=== PATIENT | male | born 1970 | race Caucasian/White ===

== ENCOUNTER → 2023-10-18 14:15 | Outpatient (REF) | payer OTHER, SELFPAY | LOC: HWRAD 14:15 | PROVIDERS: ATTENDING PHYSICIAN Otolaryngology; FAMILY PHYSICIAN Internal Medicine | DX: J33.0 Polyp of nasal cavity (principal); J32.0 Chronic maxillary sinusitis | CPT/HCPCS: 70486 ==

== ENCOUNTER 2024-05-09 12:50 | Emergency (ER) | payer OTHER, SELFPAY ==
[2024-05-09 12:53] VITALS: BP 159/89
--- NOTE | 2024-05-09 13:00 | ED.GENMED ---
ED Provider Triage
<Carolina Andrea PA-C - Last Filed: 05/09/24 13:06>
-
Patient seen by provider in Triage?: Seen in Triage
53 y/o M with h/o htn
high fever x 104.5 6 days ago, congestion
covid and flu neg at 5 days ago
started augmentin after seeing PCP 4 days ago
felt some chest tightness and was coughing so called pcp 3 days ago nd started steroid taper
having a lot of L rib pin with breathing and cough
denies h/o PE
History of Present Illness
<Carolina Andrea PA-C - Last Filed: 05/09/24 13:06>
General
Chief Complaint: Fever
Time Seen by Provider: 05/09/24 13:56
<Joon Adrian PA-C - Last Filed: 05/09/24 19:52>
History of Present Illness
History of Present Illness:
53-year-old male with history of hypertension presents to the emergency department for evaluation of persistent cough and blood-tinged sputum over the past week. He has been on Augmentin for the past 5 days and steroids for the past 4 days. Feels
though he is not improving and has had progressively worsening shortness of breath during this time as well. Fevers seem to have resolved in the past 24 hours. No leg swelling, no recent prolonged immobilization
Past History
<Carolina Andrea PA-C - Last Filed: 05/09/24 13:06>
Past History
ED Past Medical History: None
Social History
Tobacco: Non-smoker
Personal:
Review of Systems
<Joon Adrian PA-C - Last Filed: 05/09/24 19:52>
Review of Systems
Allergies reviewed?: Yes
All Other Systems: ROS reviewed and negative except as documented in HPI and ROS
Phy Exam
<Joon Adrian PA-C - Last Filed: 05/09/24 19:52>
Physical Exam
Physical Exam:
GEN: Well appearing, NAD, WDWN
Eyes: PERRLA, EOMs intact, no scleral icterus
HENT: NCAT, oral mucosa moist
Lungs: CTAB, no wheezes, rales, rhonchi, normal chest wall excursion
Cardiac: RRR, no M/R/G, no peripheral edema. Radial pulses 2+ bilat
Abdomen: S, NT, ND, NABS, no masses or hepatosplenomegaly
Neuro: AO x 3
MSK: No gross deformity or ecchymosis. No edema. No digital clubbing
Skin: No rashes, petechiae. Normal color, no pallor or jaundice.
Psych: Calm, cooperative, proper hygiene
Course
<Carolina Andrea PA-C - Last Filed: 05/09/24 13:06>
Orders/Labs/Results
Orders:
Orders
05/09/24 13:04
Electrocardiogram (*1) Urgent
Reason for Study: Chest Pain
EKG- Treatment ONCE
05/09/24 13:20
Complete Blood Count/With Diff Urgent
Comprehensive Metabolic Panel Urgent
Lactic Acid Q4H
Comment: CANCEL 2nd LACTIC ACID IF 1st LACTIC ACID IS LESS THAN 2
Blood Culture Urgent
BORA Source: Blood/Venous
Specimen Description:
05/09/24 14:12
CR Chest - 2 Views Urgent
Comment:
Reason For Exam: cough/SOB
05/09/24 15:13
CT Chest Pe Study Urgent
Comment:
Reason For Exam: hemoptysis
05/09/24 17:31
CefTRIAXone [Rocephin] 1,000 mg IV NOW STA
Doxycycline [Vibramycin] 100 mg PO NOW STA
Abnormal Lab Results
05/09/24
13:20
MCV 95.9 H fL
(80.0-94.0)
MCH 33.0 H pg
(27.0-31.0)
MPV 10.5 H fL
(7.4-10.4)
Abs Immat Gran (auto) 0.4 H 10^3/uL
(0-0.05)
Absolute Neuts (auto) 6.6 H 10^3/uL
(1.4-6.5)
Absolute Lymphs (auto) 0.9 L 10^3/uL
(1.2-3.4)
Immature Gran % 4.1 H %
(0-0.5)
Neutrophils % 76.2 H %
(42.2-75.2)
Lymphocytes % 10.9 L %
(20.5-51.1)
Glucose 133 H mg/dl
(70-99)
AST 88 H U/L
(17-59)
ALT 171 H U/L
(0-50)
05/09/24 13:20
05/09/24 13:20
Vital Signs
Initial and Last Documented VS:
Initial Vital Signs
Pulse Resp BP Pulse Ox
62 18 159/89 97
05/09/24 12:53 05/09/24 12:53 05/09/24 12:53 05/09/24 12:53
Last Documented Vital Signs
Temp Pulse Resp BP Pulse Ox
97.7 F 56 16 134/74 95
05/09/24 14:05 05/09/24 17:41 05/09/24 17:41 05/09/24 17:40 05/09/24 17:40
<Joon Adrian PA-C - Last Filed: 05/09/24 19:52>
Orders/Labs/Results
Orders:
Orders
05/09/24 13:04
Electrocardiogram (*1) Urgent
Reason for Study: Chest Pain
EKG- Treatment ONCE
05/09/24 13:20
Complete Blood Count/With Diff Urgent
Comprehensive Metabolic Panel Urgent
Lactic Acid Q4H
Comment: CANCEL 2nd LACTIC ACID IF 1st LACTIC ACID IS LESS THAN 2
Blood Culture Urgent
BORA Source: Blood/Venous
Specimen Description:
05/09/24 14:12
CR Chest - 2 Views Urgent
Comment:
Reason For Exam: cough/SOB
05/09/24 15:13
CT Chest Pe Study Urgent
Comment:
Reason For Exam: hemoptysis
05/09/24 17:31
CefTRIAXone [Rocephin] 1,000 mg IV NOW STA
Doxycycline [Vibramycin] 100 mg PO NOW STA
Abnormal Lab Results
05/09/24
13:20
MCV 95.9 H fL
(80.0-94.0)
MCH 33.0 H pg
(27.0-31.0)
MPV 10.5 H fL
(7.4-10.4)
Abs Immat Gran (auto) 0.4 H 10^3/uL
(0-0.05)
Absolute Neuts (auto) 6.6 H 10^3/uL
(1.4-6.5)
Absolute Lymphs (auto) 0.9 L 10^3/uL
(1.2-3.4)
Immature Gran % 4.1 H %
(0-0.5)
Neutrophils % 76.2 H %
(42.2-75.2)
Lymphocytes % 10.9 L %
(20.5-51.1)
Glucose 133 H mg/dl
(70-99)
AST 88 H U/L
(17-59)
ALT 171 H U/L
(0-50)
05/09/24 13:20
05/09/24 13:20
Vital Signs
Initial and Last Documented VS:
Initial Vital Signs
Pulse Resp BP Pulse Ox
62 18 159/89 97
05/09/24 12:53 05/09/24 12:53 05/09/24 12:53 05/09/24 12:53
Last Documented Vital Signs
Temp Pulse Resp BP Pulse Ox
97.7 F 56 16 134/74 95
05/09/24 14:05 05/09/24 17:41 05/09/24 17:41 05/09/24 17:40 05/09/24 17:40
<Joon Adrian PA-C - Last Filed: 05/09/24 19:52>
MDM/Problems Addressed
MDM/Problems Addressed:
Given x-ray was unremarkable and the patient is has persistent symptoms coupled with blood-tinged sputum obtain follow-up CTA of the chest to rule out pulmonary embolism or mass lesion, this revealed a right lower lobe pneumonia. Will switch the
patient from Augmentin to cefpodoxime and doxycycline, feel he is suitable for discharge to home as he is not hypoxic, in no respiratory distress, and has normal labs
<Joon Adrian PA-C - Last Filed: 05/09/24 19:52>
*Critical Care Note
Total Time (30-74mins, 75-104mins- exclusive of procedures): Not Applicable
ED Attending Note
<Carolina Andrea PA-C - Last Filed: 05/09/24 13:06>
-
Portions of this chart may have been created with voice recognition software.� Occasional wrong word or��sound alike� substitutions may have occurred due to the inherent limitations of voice recognition software.
Discharge Plan
Departure
Patient Disposition: Home (Routine Discharge)
Date of Disposition: 05/09/24
Time of Disposition: 17:32
Patient with high blood pressure during this ER visit?: No
Discharge Problem:
Right lower lobe pneumonia
Instructions: Pneumonia, Adult (DC)
Prescriptions:
New
cefpodoxime 200 mg tablet
200 mg PO BID 4 Days Qty: 8 0RF
doxycycline hyclate 100 mg capsule
100 mg PO BID Qty: 9 0RF
No Action
lisinopril 5 MG tablet
5 mg PO DAILY
Referrals:
Mason Rajput DO [Family Provider] -
Interventions
Interventions:
*Risk Screen - Suicide Last Done: 05/09/24 14:08
*General Assessment Last Done: 05/09/24 14:08
*Neglect/Abuse Screening Last Done: 05/09/24 14:08
ED- Fall Risk Assessment Last Done: 05/09/24 17:41
*ED COVID-19 Vaccine History Last Done: 05/09/24 12:55
*Nursing Disposition Last Done: 05/09/24 17:44
ED- Neurological Assessment Last Done: 05/09/24 14:08
ED-Skin Assessment Last Done: 05/09/24 14:08
Discharge Date and Time
Discharge Date/Time: 05/09/24 17:44
Print Language: MAORI
[2024-05-09 13:29] LABS: % Basophils 0.7 % (0-2); % Eosinophils 0.8 % (0-6); % Immature Granulocytes 4.1 % (0-0.5); % Lymphocytes 10.9 % (20.5-51.1); % Monocytes 7.3 % (1.7-9.3); % Neutrophils 76.2 % (42.2-75.2); Absolute Basophils 0.1 10^3/uL (0-0.2); Absolute Eosinophils 0.1 10^3/uL (0-0.7); Absolute Immature Granulocytes 0.4 10^3/uL (0-0.05); Absolute Lymphocytes 0.9 10^3/uL (1.2-3.4); Absolute Monocytes 0.6 10^3/uL (0.1-0.6); Absolute Neutrophils 6.6 10^3/uL (1.4-6.5); Hematocrit 46.8 % (39.0-52.0); Hemoglobin 16.1 g/dL (13.0-18.0); Mean Corp Hgb Conc. 34.4 g/dL (33.0-37.0); Mean Corpuscular Volume 95.9 fL (80.0-94.0); Mean Platelet Volume 10.5 fL (7.4-10.4); Nucleated Red Blood Cells % 0 % (-); Platelet Count 199 10^3/uL (130-400); Red Blood Cell Count 4.88 10^6/uL (4.70-6.10); Red Cell Dist. Width 12.8 % (11.5-14.5); White Blood Cell Count 8.6 10^3/uL (4.8-10.8)
[2024-05-09 13:45] LABS: ALT (SGPT) 171 U/L (0-50); AST (SGOT) 88 U/L (17-59); Albumin 3.8 g/dl (3.5-5.0); Alkaline Phosphatase 110 U/L (38-126); Blood Urea Nitrogen 16 mg/dl (9-20); Calcium 9.8 mg/dl (8.4-10.2); Carbon Dioxide 29 mmol/L (22-30); Chloride 103 mmol/L (98-107); Glucose 133 mg/dl (70-99); Potassium 4.3 mmol/L (3.5-5.1); Sodium 141 mmol/L (135-145); Total Bilirubin 0.6 mg/dl (0.2-1.3); Total Protein 6.5 g/dl (6.3-8.2); eGFR > 60.00
[2024-05-09 13:46] LABS: Lactic Acid 0.9 mmol/L (0.7-2.0)
[2024-05-09 14:04] VITALS: BP 129/89
[2024-05-09 14:46] VITALS: BP 138/84
[2024-05-09 14:48] VITALS: BP 138/84
[2024-05-09 17:00] VITALS: BP 107/90
[2024-05-09] MEDS: ROCEPHIN 1000 MG IV (17:37)
[2024-05-09] MEDS: VIBRAMYCIN 100 MG PO (17:37)
[2024-05-09 17:40] VITALS: BP 134/74
== END 2024-05-09 17:44 | disposition home or self-care (01) ==
LOC: EMR 12:50
PROVIDERS: Physician Assistant; EMERGENCY PHYSICIAN Student in an Organized Health Care Education/Training Program; FAMILY PHYSICIAN Internal Medicine
DX: J18.9 Pneumonia, unspecified organism (principal); I10 Essential (primary) hypertension
CPT/HCPCS: 99284; 96374; 71046; 71275; 80053; 83605; 85025; 87040; 93005; Q9967

== ENCOUNTER 2024-06-12 06:15 | Day surgery (SDC) | payer OTHER, SELFPAY | END 2024-06-12 08:53 | disposition home or self-care (01) | LOC: GI 06:15 | PROVIDERS: ATTENDING PHYSICIAN Internal Medicine Gastroenterology | DX: Z12.11 Encounter for screening for malignant neoplasm of colon (principal); K64.8 Other hemorrhoids; K57.30 Diverticulosis of large intestine without perforation or abscess without bleeding; D12.0 Benign neoplasm of cecum; Z80.0 Family history of malignant neoplasm of digestive organs; Z86.0100 Personal history of colon polyps, unspecified | CPT/HCPCS: 45380; 88305 ==

== ENCOUNTER 2025-02-02 22:57 | Emergency (ER) | payer OTHER, SELFPAY ==
[2025-02-02 22:59] VITALS: BP 158/93
[2025-02-02 23:25] LABS: Hematocrit 45.7 % (39.0-52.0); Hemoglobin 15.8 g/dL (13.0-18.0); Mean Corp Hgb Conc. 34.6 g/dL (33.0-37.0); Mean Corpuscular Volume 95.4 fL (80.0-94.0); Nucleated Red Blood Cells % 0 % (-); Platelet Count 174 10^3/uL (130-400); Red Cell Dist. Width 12.6 % (11.5-14.5)
[2025-02-02 23:41] LABS: ALT (SGPT) 29 U/L (0-50); AST (SGOT) 24 U/L (17-59); Albumin 4.2 g/dl (3.5-5.0); Alkaline Phosphatase 100 U/L (38-126); Blood Urea Nitrogen 19 mg/dl (9-20); Calcium 10.2 mg/dl (8.4-10.2); Carbon Dioxide 27 mmol/L (22-30); Chloride 105 mmol/L (98-107); Glucose 104 mg/dl (70-99); Potassium 4.7 mmol/L (3.5-5.1); Sodium 136 mmol/L (135-145); Total Protein 6.9 g/dl (6.3-8.2); eGFR > 60.00
[2025-02-02 23:53] LABS: Troponin I < 0.012 ng/ml
[2025-02-03] VITALS (9 sets, daily range): BP systolic 108–136; BP diastolic 61–91
[2025-02-03] MEDS: CARDIZEM 20 MG IV (04:02)
[2025-02-03] MEDS: TYLENOL 650 MG PO (04:16)
[2025-02-03] MEDS: CARDIZEM 125 IV (05:05)
--- NOTE | 2025-02-03 06:52 | ED.GENMED ---
History of Present Illness
<Leon Diaz, DO - Last Filed: 02/04/25 05:11>
General
Chief Complaint: Heart Rate Problem
Source: patient
Time Seen by Provider: 02/03/25 02:18
Nursing documentation reviewed up to this point in time: agreed with
History of Present Illness
History of Present Illness:
Note:
CHIEF COMPLAINT(S)
Palpitations with confirmed atrial fibrillation.
HISTORY OF PRESENT ILLNESS
The patient is a 54-year-old male who presented after experiencing an elevated heart rate detected by his smartwatch around 10:00 PM, which indicated he was in atrial fibrillation. He denied previously experiencing atrial fibrillation patient states
that for the last few days he has been feeling weak and fatigued. He did note a sensation of tightness in his chest, although he explicitly stated it was not chest pain. This sensation began while he was at work. 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
insurance agency manager. The exact onset of the atrial fibrillation is uncertain, but the sensation intensified around 10:00 PM via his watch. He also reported occasionally waking up at 3:00 AM with a notably low heart rate, around 40 beats per minute,.
PAST MEDICAL AND SURGICAL HISTORY
The patient is currently taking lisinopril at a dose of 10 milligrams for blood pressure management.
MEDICATIONS
Lisinopril 10 mg.
FAMILY HISTORY
The patient reported that his mother has a history of cardiac issues, although specifics were not detailed.
PHYSICAL EXAM
General: Alert, no acute distress.
Skin: Warm, dry.
Head: Normocephalic, atraumatic.
Neck: Supple, trachea midline.
Eye Ears, nose, mouth, and throat: Oral mucosa moist.
Cardiovascular: rhythm consistent with atrial fibrillation without acute edema.
Respiratory: Respirations are non-labored.
Musculoskeletal: Normal range of motion, normal strength.
Neurological: Alert and oriented to person, place, time, and situation; no focal neurological deficit observed.
Psychiatric: Cooperative, appropriate mood and affect.
PLAN
Initiate treatment with medication to attempt conversion from atrial fibrillation to normal sinus rhythm. If unsuccessful, consult with cardiology for further management, including potential admission for more in-depth assessment and testing to rule
out thromboembolic risk and other complications associated with atrial fibrillation.
DIFFERENTIAL DIAGNOSIS
The Differential Diagnosis includes, in no particular order, and is not limited to: Atrial fibrillation, Atrial flutter, Supraventricular tachycardia, Premature atrial contractions, Anxiety/panic attack, Hyperthyroidism, Structural heart disease,
Dehydration/Electrolyte imbalance, Alcohol use, and Drug-induced arrhythmia.
Disposition:
SUMMARY OF ENCOUNTER
The patient, a 54-year-old male, presented to the emergency department with palpitations, which were detected by his smartwatch as atrial fibrillation. He reported experiencing sensations of chest tightness, weakness, and fatigue over the last few
days. Although he had an episode of low heart rate during sleep, no previous diagnosis of atrial fibrillation existed. Physical examination confirmed atrial fibrillation without acute distress. The management plan involved initiating medication for
rhythm conversion and consideration of admission for further assessment to address potential thromboembolic risks, depending on treatment success.
ASSESSMENT
The patient presents with new-onset atrial fibrillation, symptoms of weakness, fatigue, and sensation of chest tightness, likely secondary to atrial fibrillation.
PLAN
Initiate medication for rhythm conversion from atrial fibrillation to normal sinus rhythm. If the medical management proves inadequate to restore sinus rhythm, consult cardiology for further management, including potential admission for
comprehensive evaluation and management of thromboembolic risks and associated complications.
MEDICATION RECONCILIATION
Lisinopril 10 mg for blood pressure management.
MEDICAL DECISION MAKING
- Number and Complexity of Problems Addressed: Chronic conditions affecting care include hypertension managed with lisinopril. Differential Diagnosis (DDx) includes atrial fibrillation, atrial flutter, supraventricular tachycardia, premature atrial
contractions, anxiety/panic attack, hyperthyroidism, structural heart disease, dehydration/electrolyte imbalance, alcohol use, and drug-induced arrhythmia.
- Data:
- Category 1: Review of the patients smartwatch data indicating atrial fibrillation.
- Category 3: Discussion of management options with cardiology to potentially admit for further evaluation.
- Risk: Prescription drug management for conversion of atrial fibrillation. Consideration of Admission/Observation was considered given the complexity and risk of the patients presenting complaint, but if successful rhythm conversion occurs,
outpatient management with close follow-up is advisable.
DIAGNOSIS
Atrial fibrillation (I48.91).
Past History
<Leon Diaz DO - Last Filed: 02/04/25 05:11>
Past History
ED Past Medical History: None
Social History
Tobacco: Non-smoker
Personal:
Phy Exam
<Leon Diaz DO - Last Filed: 02/04/25 05:11>
Physical Exam
Physical Exam:
.
Scores
<Leon Diaz DO - Last Filed: 02/04/25 05:11>
[id number] Score for Afib Stroke Risk
Age in Years (65=0, 65-74=1, >/=75=2): <65
Sex (Female=+1): Male
Congestive Heart Failure History (Yes=+1): No
Hypertension History (Yes=+1): Yes
Stroke/TIA/Thromboembolism History (Yes=+2): No
Vascular Disease History (Yes=+1): No
Diabetes Mellitus (Yes=+1): No
Score: 1
Anticoagulation Recommendations: Consider anticoagulation (as validated in nonvalvular fib)
Course
<Leon Diaz DO - Last Filed: 02/04/25 05:11>
Orders/Labs/Results
Orders:
Orders
02/02/25 23:02
Electrocardiogram (*1) Urgent
Reason for Study: Chest Pain
EKG- Treatment ONCE
02/02/25 23:15
Complete Blood Count/With Diff Urgent
Comprehensive Metabolic Panel Urgent
Troponin I Urgent
02/03/25 04:01
Diltiazem HCl [Cardizem] 25 mg .ROUTE .STK-MED ONE
02/03/25 04:02
Diltiazem HCl [Cardizem] 20 mg IV NOW STA
Diltiazem HCl [Cardizem] 20 mg IV NOW STA
02/03/25 04:15
Acetaminophen [Tylenol] 650 mg .ROUTE .STK-MED ONE
02/03/25 04:16
Acetaminophen [Tylenol] 650 mg PO NOW STA
02/03/25 05:00
Diltiazem 125 mg/125 ml Nss [Cardizem] 125 mg in 125 ml IV PER PROTOCOL
Initial dose in mg/hr, then titrate:: 5
Titrate to keep:: Heart rate 80-100 bpm
Titrate by mg/hr:: 5 mg/hr
Frequency of titrations (minutes):: 15
Maximum dose in mg/hr:: 15
02/03/25 05:04
Diltiazem 125 mg/125 ml Nss [Cardizem] 125 mg in 125 ml .ROUTE .STK-MED
02/03/25 07:41
CARDIOLOGY CONSULT Urgent
Consulting Provider: Shahid Milton
Was physician already notified: Yes
02/03/25 08:00
Apixaban [Eliquis] 5 mg PO BID
Abnormal Lab Results
02/02/25
23:15
WBC 12.4 H 10^3/uL
(4.8-10.8)
MCV 95.4 H fL
(80.0-94.0)
MCH 33.0 H pg
(27.0-31.0)
MPV 10.9 H fL
(7.4-10.4)
Abs Immat Gran (auto) 0.1 H 10^3/uL
(0-0.05)
Absolute Neuts (auto) 7.0 H 10^3/uL
(1.4-6.5)
Absolute Lymphs (auto) 3.8 H 10^3/uL
(1.2-3.4)
Absolute Monos (auto) 1.2 H 10^3/uL
(0.1-0.6)
Monocytes % 9.5 H %
(1.7-9.3)
Glucose 104 H mg/dl
(70-99)
02/02/25 23:15
02/02/25 23:15
Vital Signs
Initial and Last Documented VS:
Initial Vital Signs
Temp Pulse Resp BP Pulse Ox
98.6 F 84 20 158/93 98
02/02/25 22:59 02/02/25 22:59 02/02/25 22:59 02/02/25 22:59 02/02/25 22:59
Last Documented Vital Signs
Temp Pulse Resp BP Pulse Ox
98.6 F 66 27 108/84 98
02/02/25 22:59 02/03/25 08:00 02/03/25 08:00 02/03/25 08:00 02/03/25 06:54
<Tushar Miranda MD - Last Filed: 02/03/25 08:27>
Orders/Labs/Results
Orders:
Orders
02/02/25 23:02
Electrocardiogram (*1) Urgent
Reason for Study: Chest Pain
EKG- Treatment ONCE
02/02/25 23:15
Complete Blood Count/With Diff Urgent
Comprehensive Metabolic Panel Urgent
Troponin I Urgent
02/03/25 04:01
Diltiazem HCl [Cardizem] 25 mg .ROUTE .STK-MED ONE
02/03/25 04:02
Diltiazem HCl [Cardizem] 20 mg IV NOW STA
Diltiazem HCl [Cardizem] 20 mg IV NOW STA
02/03/25 04:15
Acetaminophen [Tylenol] 650 mg .ROUTE .STK-MED ONE
02/03/25 04:16
Acetaminophen [Tylenol] 650 mg PO NOW STA
02/03/25 05:00
Diltiazem 125 mg/125 ml Nss [Cardizem] 125 mg in 125 ml IV PER PROTOCOL
Initial dose in mg/hr, then titrate:: 5
Titrate to keep:: Heart rate 80-100 bpm
Titrate by mg/hr:: 5 mg/hr
Frequency of titrations (minutes):: 15
Maximum dose in mg/hr:: 15
02/03/25 05:04
Diltiazem 125 mg/125 ml Nss [Cardizem] 125 mg in 125 ml .ROUTE .STK-MED
02/03/25 07:41
CARDIOLOGY CONSULT Urgent
Consulting Provider: Shahid Milton
Was physician already notified: Yes
02/03/25 08:00
Apixaban [Eliquis] 5 mg PO BID
Abnormal Lab Results
02/02/25
23:15
WBC 12.4 H 10^3/uL
(4.8-10.8)
MCV 95.4 H fL
(80.0-94.0)
MCH 33.0 H pg
(27.0-31.0)
MPV 10.9 H fL
(7.4-10.4)
Abs Immat Gran (auto) 0.1 H 10^3/uL
(0-0.05)
Absolute Neuts (auto) 7.0 H 10^3/uL
(1.4-6.5)
Absolute Lymphs (auto) 3.8 H 10^3/uL
(1.2-3.4)
Absolute Monos (auto) 1.2 H 10^3/uL
(0.1-0.6)
Monocytes % 9.5 H %
(1.7-9.3)
Glucose 104 H mg/dl
(70-99)
02/02/25 23:15
02/02/25 23:15
Vital Signs
Initial and Last Documented VS:
Initial Vital Signs
Temp Pulse Resp BP Pulse Ox
98.6 F 84 20 158/93 98
02/02/25 22:59 02/02/25 22:59 02/02/25 22:59 02/02/25 22:59 02/02/25 22:59
Last Documented Vital Signs
Temp Pulse Resp BP Pulse Ox
98.6 F 66 27 108/84 98
02/02/25 22:59 02/03/25 08:00 02/03/25 08:00 02/03/25 08:00 02/03/25 06:54
<Leon Diaz DO - Last Filed: 02/04/25 05:11>
*Pulse Oximetry
SaO2: 98
Oxygen Mode of Delivery: Room air
Patient hypoxic: no
*Critical Care Note
Total Time (30-74mins, 75-104mins- exclusive of procedures): Not Applicable
<Leon Diaz DO - Last Filed: 02/04/25 05:11>
Update Note
Update Note:
Spoke with Dr. Milton who discussed 2 options for patient. Option #1 is to stay in the hospital with a ARLENE/DC cardioversion on Wednesday. Or go home on and follow-up in the office in a week or 2. If still in A-fib patient will get
cardioverted then.
Patient has plans to leave the state to go fishing on . He is unsure of the best plan to treat this. Cardiology will come into see him.
<Tushar Miranda MD - Last Filed: 02/03/25 08:27>
Update Note
Update Note:
Spoke with Dr. Milton who discussed 2 options for patient. Option #1 is to stay in the hospital with a ARLENE/DC cardioversion on Wednesday. Or go home on Eliquis and follow-up in the office in a week or 2. If still in A-fib patient will get
cardioverted then.
Patient has plans to leave the state to go fishing on . He is unsure of the best plan to treat this. Cardiology will come into see him.
814... Patient seen by cardiology and cleared for discharge. A prescription for Eliquis was sent to his pharmacy
ED Attending Note
<Leon Diaz DO - Last Filed: 02/04/25 05:11>
-
Portions of this chart may have been created with voice recognition software.� Occasional wrong word or��sound alike� substitutions may have occurred due to the inherent limitations of voice recognition software.
Discharge Plan
Departure
Patient Disposition: Home (Routine Discharge)
Date of Disposition: 02/03/25
Time of Disposition: :
Patient with high blood pressure during this ER visit?: No
Discharge Problem:
Paroxysmal atrial fibrillation
Instructions: Atrial Fibrillation (DC), Palpitations (DC), Managing increased bleeding risk, BLOOD PRESSURE
Prescriptions:
New
Eliquis 5 mg tablet
5 mg PO BID Qty: 60 0RF
No Action
lisinopril 5 MG tablet
5 mg PO DAILY
cefpodoxime 200 mg tablet
200 mg PO BID 4 Days Qty: 8 0RF
doxycycline hyclate 100 mg capsule
100 mg PO BID Qty: 9 0RF
Referrals:
Shahid Milton MD [Active, Cardiology]
Mason Rajput DO [Family Provider, Internal Medicine]
Activity Restrictions/Additional Instructions:
Thank You for choosing [facility].
It was a pleasure meeting you and taking part in your care. We hope for your continued healing and wellness.
Please read discharge instructions in their entirety. However, they are for general education and may not describe your exact diagnosis at discharge. Information on your ER visit and medical conditions were discussed with you along with appropriate
follow up information...
If indicated, please take your medications as instructed and indicated on discharge paperwork.
Please schedule a follow up appointment as directed. Call to schedule an appointment
Please return to the emergency department with ANY change in, persisting, or worsening of symptoms. If any of your symptoms do not improve, or persist, or become more severe within 6-12 hours, please return to the emergency department for further
care.
Please return to the emergency department if you develop a headache, neck pain/stiffness, fever greater than 100.4F, chest pain, shortness of breath, persistent nausea, vomiting, slurred speech, difficulty walking, numbness/tingling, weakness, signs
of infection or any other symptoms that are worrisome to you.
If you have any questions or concerns please do not hesitate to call the Hospital at or E-mail me directly at [email or web address]
Interventions
Interventions:
*Risk Screen - Suicide Last Done: 02/02/25 22:59
*General Assessment Last Done: 02/02/25 22:59
*Neglect/Abuse Screening Last Done: 02/02/25 22:59
*ED- Fall Risk Assessment Last Done: 02/03/25 00:47
*ED COVID-19 Vaccine History Last Done: 02/03/25 00:47
*Nursing Disposition Last Done: 02/03/25 08:33
ED- Cardiac Assessment Last Done: 02/03/25 00:47
ED- Pulmonary Assessment Last Done: 02/03/25 00:47
Discharge Date and Time
Discharge Date/Time: 02/03/25 08:33
Print Language: CITIZEN OF [place]
--- NOTE | 2025-02-03 07:40 | CON.CAR ---
Consultation
Consultation Request
Date/Time Consultation Requested: 02/03/25 @ 6AM
Date/Time Consultation Performed: 02/03/25 @ 7:30 AM
Requesting Provider: Leon Diaz DO
Performing Provider: Shahid Milton MD
Reason for Consultation: new onset afib
Medical History
-
Chief Complaint: palpitations
History of Present Illness:
54-year-old man with a history of hypertension on lisinopril and obstructive sleep apnea on CPAP who presents with palpitations for the past few days. He also felt fatigued and just 'not himself' for the past several days. Last night he used his
Apple Watch to check an ECG and it read as atrial fibrillation, so he presented to the ER. Initial ECG here showed normal sinus rhythm but then he went into rate controlled atrial fibrillation. Heart rates have been in the 60s to 70s. He reports
that sometimes when sleeping his heart rate dips into the 30s�40s and he is alerted by his watch. He is not a smoker, he drinks 1 glass of wine on the weekends, no drugs. His mother had a history of atrial fibrillation and father had a history of
stents later in life. Patient normally exercises and can run 1-1.5 miles on the treadmill without issue. He has not done this in the past couple of days while palpitations have been ongoing.
Past Medical History
Past Medical History: HTN and Other (PILAR on CPAP)
Social History
Tobacco: Non-Smoker
Alcohol: Occasional
Living: With Family
Family History
Family History: CAD
Allergies / Home Medications
Allergy/AdvReac Type Severity Reaction Status Date / Time
No Known Allergies Allergy Verified 04/24/20 08:40
�Medication �Instructions �Recorded �Confirmed �Type
lisinopril 5 mg tablet 5 mg PO DAILY 04/24/20 04/24/20 History
cefpodoxime 200 mg tablet 200 mg PO BID 4 days #8 tabs 05/09/24 Rx
doxycycline hyclate 100 mg capsule 100 mg PO BID #9 caps 05/09/24 Rx
Review of Systems
-
All other systems: Negative unless noted
Physical Exam
Vital Signs
Temp Pulse Resp BP Pulse Ox
98.6 F 67 19 108/85 98
02/02/25 22:59 02/03/25 07:15 02/03/25 07:15 02/03/25 07:00 02/03/25 06:54
Lab Results
02/02/25 23:15
02/02/25 23:15
Troponin I < 0.012 ng/ml 02/02/25 23:15
Physical Exam
General: Well Developed and Well Nourished
Respiratory: Clear and Non Labored Respirations
Cardiac: S1/S2 and Irregular Rhythm; Negative Murmur or Peripheral Edema
Neuro: AO x 3
Impression / Plan
-
54-year-old man with hypertension and PILAR on CPAP who presents with new onset paroxysmal atrial fibrillation.
Paroxysmal atrial fibrillation
- He has been going in and out of A-fib even in the ER so there is no role for cardioversion. He is rate controlled on no medications.
- We discussed various options for his atrial fibrillation and he is interested in ablation.
- [id number] 1 (hypertension)
- Start Eliquis 5 mg twice daily given that he would need it around time of ablation
- We will set him up for a follow-up in our office and an echocardiogram
- We discussed lifestyle modifications including limiting alcohol intake and weight loss
Hypertension
- Continue lisinopril
Data Reviewed
-
EKG: Tracing Personally Visualized and interpreted, Report Reviewed by me, Discussed with Physician and Discussed with Patient
Labs: Labs Reviewed by me, Discussed with Physician and Discussed with Patient
[2025-02-03] MEDS: ELIQUIS 5 MG PO (08:09)
== END 2025-02-03 08:33 | disposition home or self-care (01) ==
LOC: EMR 22:57
PROVIDERS: CONSULT PHYSICIAN Student in an Organized Health Care Education/Training Program; EMERGENCY PHYSICIAN Student in an Organized Health Care Education/Training Program; FAMILY PHYSICIAN Internal Medicine
DX: I48.0 Paroxysmal atrial fibrillation (principal); I10 Essential (primary) hypertension; Z79.899 Other long term (current) drug therapy; G47.33 Obstructive sleep apnea (adult) (pediatric); Z79.01 Long term (current) use of anticoagulants
CPT/HCPCS: 99284; 80053; 84484; 85025; 93005

== ENCOUNTER → 2025-02-26 09:17 | Outpatient (REF) | payer OTHER, SELFPAY | LOC: HWRCS 09:17 | PROVIDERS: ATTENDING PHYSICIAN Student in an Organized Health Care Education/Training Program; FAMILY PHYSICIAN Internal Medicine | DX: I48.0 Paroxysmal atrial fibrillation (principal) | CPT/HCPCS: 93306 ==

== ENCOUNTER → 2025-04-02 07:47 | Day surgery (SDC) | payer OTHER, SELFPAY ==
[2025-03-19 10:47] LABS: Hematocrit 46.3 % (39.0-52.0); Hemoglobin 15.8 g/dL (13.0-18.0); Mean Corp Hgb Conc. 34.1 g/dL (33.0-37.0); Mean Corpuscular Volume 94.1 fL (80.0-94.0); Nucleated Red Blood Cells % 0 % (-); Platelet Count 173 10^3/uL (130-400); Red Cell Dist. Width 12.9 % (11.5-14.5)
[2025-03-19 11:25] LABS: ALT (SGPT) 35 U/L (0-50); AST (SGOT) 56 U/L (17-59); Albumin 4.4 g/dl (3.5-5.0); Alkaline Phosphatase 81 U/L (38-126); Blood Urea Nitrogen 9 mg/dl (9-20); Calcium 10.2 mg/dl (8.4-10.2); Carbon Dioxide 28 mmol/L (22-30); Chloride 103 mmol/L (98-107); Glucose 95 mg/dl (70-99); Potassium 4.7 mmol/L (3.5-5.1); Sodium 136 mmol/L (135-145); Total Protein 7.0 g/dl (6.3-8.2); eGFR > 60.00
[2025-03-19 13:51] VITALS: BMI 32.5
[2025-04-02] VITALS (8 sets, daily range): BP systolic 105–122; BP diastolic 63–69; BMI 31.0
--- NOTE | 2025-04-02 12:15 | ITS.CL.ABL ---
[employer] - Ablation
Ablation
Procedure Report:
AFIB / A flutter ablation:
Mr. Bourne is a very pleasant 54 yr old gentleman with medical history significant for symptomatic paroxysmal atrial fibrillation is here in the EP lab for atrial fibrillation / flutter ablation
Date of Procedure:
04/02/2025
Indications:
Symptomatic paroxysmal atrial fibrillation
Pre-Operative Diagnosis:
Paroxysmal atrial fibrillation
Post-Operative Diagnosis:
Paroxysmal atrial fibrillation
Procedure Performed:
Atrial fibrillation ablation with wide area circumferential ablation (WACA) approach for pulmonary vein isolation
Posterior wall isolation
Performing Physician:
Leana Ojeda MD
Assistants:
EP staff
Anesthesia:
See anesthesia records
Detailed Description of the Procedure:
Written informed consent was obtained from the patient after a full explanation of the risks and benefits of the procedure including the risks of sedation and anesthesia.
The patient was brought to the electrophysiology laboratory in stable condition in fasting state. Continuous electrocardiographic and hemodynamic monitoring was initiated.
The initial rhythm was sinus.
The procedure site was meticulously prepared with surgical scrub and allowed to dry with no pooling. Sterile draping was applied to cover the procedure site. The image intensifier was draped with sterile bag and positioned over the patient. After
infusion of local anesthetic, vascular access was obtained under ultrasound guidance and sheaths were placed over guide wire as detailed below.
The images of the ultrasound of the femoral vessels were stored in patient chart.
Sheath and Catheter Placement:
The following catheters / sheaths were placed
Sheaths:
Agilis sheath in right femoral vein upgraded from 10Fr in right femoral vein
9Fr in left femoral vein
Catheters:
The Affera Sphere 9 catheter -bidirectional D/F - at locations of HRA, RV, LA and LV.
ICE catheter -AccuNav - at locations of RA, SVC, and RV.
Heparin was initiated after the access was obtained.
Intracardiac ECHO:
An 8-Omani AcuNav intracardiac ECHO (ICE) probe was advanced through the 9-Omani sheath in the left femoral vein into the right atrium under fluoroscopic and ICE ultrasound image guidance and a baseline ECHO study was performed. The left atrial
size was dilated. There was trace tricuspid regurgitation. The aortic valve was grossly normal. There was mild to moderately reduced left ventricular systolic function. There is no pericardial effusion. The KISHA has baseline normal velocities. The
pulmonary had good flow identified.
During the procedure, ICE was used for monitoring of complications, guidance of trans-septal puncture, monitor the catheter position and tracking ablation lesions. No change in the pericardial space noted throughout the procedure.
Trans-septal Puncture:
Heparin was initiated and infused to maintain appropriate ACT. A J-tipped guidewire was advanced through into the superior vena cava under fluoroscopic and ICE guidance. The Agilis sheath was advanced into the superior vena cava over a guidewire.
The BRK needle was placed inside the Agilis sheath. The apparatus was withdrawn until it was in contact with the fossa ovalis. The position was adjusted based on fluoroscopy and ultrasound images from ICE. Under fluoroscopic, hemodynamic and ICE
ultrasound guidance, left atrium was cannulated by advancing the needle. Once atrial septum was cannulated, the needle was pulled back and the guide wire was advanced through the needle into the left atrium. The guide wire was advanced into the left
superior pulmonary vein. Both the sheath and the dilator was advanced into the left atrium. The dilator with the needle was withdrawn. Blood was aspirated from the Agilis sheath and arterial blood confirmed. The sheath was flushed. Saline injection
noted into the left atrium on ICE. The waveform of the LA pressure was recorded. The mapping catheter was advanced in the Agilis sheath into the left pulmonary vein.
3D Electroanatomic Mapping:
Using the Sphere 9 Affera catheter advanced through Agilis sheath into the left atrium, an electroanatomic map (EAM) of the left atrium was created using [employer]� mapping system with [employer] software. The map was used for localization of catheter
position and tacking of ablation lesions. The EAM of the left atrium showed a total of 4 PVs with two left and the two right sided pulmonary veins with all electrically connected to the body the LA. It showed scattered scar on the posterior wall of
the LA. The LA was severely dilated in size.
Following the EAM, preparation were made for ablation.
Ablation:
Ablation # 1: Pulmonary vein Isolation:
Pulsed field ablation was performed using an open irrigation, bidirectional, contact sensing, dual energy ablation catheter ([employer] sphere -9) by completing the circumferential lesions around the left and right pulmonary veins achieving pulmonary
vein isolation.
Confirmation of the PVI and bidirectional block:
Following achievement of entrance block at the pulmonary veins, pacing from the Sphere 9 affera catheter in each of the four veins at 20 milliamps for 4 milliseconds showed entrance and exit block.
The LA was mapped with The [employer] mapping system with [employer] software in sinus rhythm confirming the line of block at the ablation lesions lines.
There was extensive scar noted in the posterior wall with slowing of conduction making a substance for reentry flutter.
Ablation # 2: Roof line Formation:
There was a clear channel of electrical activity left in the posterior wall with multiple CFAE and AF areas on the roof and ablation in that area increased the risk of atrial flutter and decision was made to create a roof line to block a slow
conduction. A set of pulsed field ablations were placed on the roof line connecting the left superior pulmonary vein ablation lesions to the right superior pulmonary vein lesions rings.
Ablation # 3: Posterior wall isolation with the Box lesions set Formation:
There was a significant fractionation seen in the posterior wall and LA AF foci along with CFAE made it clear as the posterior wall is critical in maintaining the atrial fibrillation and the decision was made to isolate the posterior wall by
creating a �Box� lesions.
A set of Pulsed field ablations were placed on the floor line connecting the left inferior pulmonary vein ablation lesions to the right inferior pulmonary vein lesions rings.
The sphere 9 in the posterior wall showed entrance block and the pacing from the posterior wall showed no exit from the box lesions confirming the exit block.
EP study:
Sinus Node Function: The sinus node functions are within acceptable normal range.
Atrioventricular Eliza Function: Normal AV conduction noted.
Procedure End
ICE study was done again that showed no epicardial accumulation. No complications noted.
Following the completion of the EP study, catheters were removed. Protamine 40 mg was given at the end of the procedure and ACT was checked repeatedly. The sheaths were removed and hemostasis achieved with VASCADE and manual compression after
acceptable ACT is achieved.
Left atrial Pressure:
Pre-Procedure: Mean LA pressure was 8mmHg
Post-Procedure: Mean LA pressure was 8mmHg
Post-Procedure: Mean RA pressure was 6mmHg
Fluoro Time:
0.4min
Estimated Blood loss:
<10 cc
Specimens Removed:
None.
Implants / Devices:
None
Urine output:
None
Packs / Drains/ Tubes:
None
Instrument / Sponge Count Correct:
Yes
Complications of the Procedure:
None
Condition of Patient at Time of Transfer:
Hemodynamically stable with no neurological or vascular compromise.
Summary:
Successful atrial fibrillation ablation with circumferential bidirectional line of block at pulmonary venin antra (Pulmonary vein isolation), roof flutter line creation, Posterior wall isolation.
Figures from the Procedure:
Figure 1: The electroanatomic mapping (EAM) of the left atrium with bipolar voltage (purple indicates normal electrical activity with red as no myocardial muscle electric activity indicating a line of block or scar.
--- NOTE | 2025-04-02 14:39 | W.PN.UPDATE ---
Update Note
Progress Note Update
Pt seen post PFA. Right groin site with vascade closure, no ht/bleeding. OOB ambulating. Post EKG NSR 60s, no acute changes. Resume eliquis tonight at usual time. Followup at [facility] as scheduled. Home today if groin site/tele remain stable.
[2025-04-03 13:29] LABS: ACT-LR - POC 380 Seconds (116-155)
[2025-04-03 13:29] LABS: ACT-LR - POC 305 Seconds (116-155)
[2025-04-03 13:29] LABS: ACT-LR - POC 339 Seconds (116-155)
== END | disposition home or self-care (01) ==
LOC: CATH 07:47
PROVIDERS: ATTENDING PHYSICIAN Internal Medicine Cardiovascular Disease; FAMILY PHYSICIAN Internal Medicine; OTHER PHYSICIAN Student in an Organized Health Care Education/Training Program
DX: I48.0 Paroxysmal atrial fibrillation (principal); E66.9 Obesity, unspecified; G47.33 Obstructive sleep apnea (adult) (pediatric); I10 Essential (primary) hypertension; Z79.01 Long term (current) use of anticoagulants; Z79.899 Other long term (current) drug therapy; Z79.85 Long-term (current) use of injectable non-insulin antidiabetic drugs; Z86.018 Personal history of other benign neoplasm
CPT/HCPCS: C1733; C1769 ×2; C1894; C1766; C1892; C1759; 36415; 80053; 85025; 85347; 86850; 86900; 86901; 93005; 93656; 93657